=== PATIENT | female | born 2000 | race Caucasian/White ===

== ENCOUNTER 2019-08-09 11:42 | Emergency (ER) | payer OTHER ==
--- NOTE | 2019-08-09 12:35 | ED ---
Head Injury - HPI Summary HPI Summary: Patient is a 19 y/o F presenting to the ED for a chief complaint of headache after a head injury. Patient was sent to [facility]. Patient was seen at [facility] on 08/06/19 and had a follow up with [facility] this morning. Patient describes that she was playing [employer] on 08/04/19 when she tripped and hit her head. Patient denies LOC at that time. Patient admits neck pain, nausea, dizziness, whiplash, blurred vision, and a headache that began on 08/05/19. Patient states the blurred vision worsens when looking at screens or reading. Patient denies weakness in the bilateral UE or LE or vomiting. Patient denies exertion since the head injury. Patient took Tylenol Q4H with some relief. Patient denies any PMHx, but admits a PSHx of wisdom tooth surgery. Patient denies tobacco, alcohol, or drug use. 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 Allergies noted. Medications reviewed. - History Of Current Complaint Chief Complaint: EDHeadInjury Stated Complaint: POSSIBLE CONCUSSIN Time Seen by Provider: 08/09/19 12:14 Hx Obtained From: Patient Mechanism Of Injury: Fall From A Standing Position - Playing [employer] Onset/Duration: Traumatic, Still Present Onset of Pain: Days Severity Currently: Severe Severity Initially: Severe Pain Intensity: 7 Pain Scale Used: 0-10 Numeric Location of Head Injury: Diffuse Alleviating Factor(s): OTC Medications` - Tylenol with some relief Associated Signs And Symptoms: Neck Pain, Nausea, Headache, Visual Changes - Blurred vision worse with looking at screens or reading, Other: - Positive dizziness and whiplash - Allergies/Home Medications Allergies/Adverse Reactions: Allergies Allergy/AdvReac Type Severity Reaction Status Date / Time No Known Allergies Allergy Verified 08/09/19 12:17 Home Medications: Home Medications NK [No Home Medications Reported] 08/09/19 [History Confirmed 08/09/19] PMH/Surg Hx/FS Hx/Imm Hx Previously Healthy: Yes Endocrine/Hematology History: Denies: Hx Diabetes Cardiovascular History: Denies: Hx Hypercholesterolemia, Hx Hypertension Respiratory History: Reports: Other Respiratory Problems/Disorders - Hx allergies Sensory History: Denies: Hx Legally Blind, Hx Deafness Opthamlomology History: Denies: Hx Legally Blind EENT History: Denies: Hx Deafness - Surgical History Surgical History: None Surgery Procedure, Year, and Place: None Infectious Disease History: No Infectious Disease History: Denies: Traveled Outside the [place] in Last 30 Days - Family History Known Family History: Negative: Hypertension, Diabetes - Social History Occupation: Student Lives: Alone Alcohol Use: Rare Hx Substance Use: No Substance Use Type: Reports: None Hx Tobacco Use: No Smoking Status (MU): Never Smoked Tobacco Review of Systems Positive: Blurred Vision - Worse with looking at screens or reading Positive: Nausea Positive: Myalgia - Neck pain and whiplash Neurological: Other - Positive dizziness Positive: Headache. Negative: Weakness - Bilateral UE or LE, Syncope All Other Systems Reviewed And Are Negative: Yes Physical Exam - Summary Physical Exam Summary: Constitutional: Well-developed, Well-nourished, Alert. (-) Distressed Skin: Warm, Dry HENT: Normocephalic; Atraumatic Eyes: Conjunctiva normal Neck: Musculoskeletal ROM normal neck. (-) JVD, (-) Stridor, (-) Tracheal deviation Cardio: Rhythm regular, rate normal, Heart sounds normal; Intact distal pulses. Radial pulses are 2+ and symmetric. (-) Murmur Pulmonary/Chest wall: Effort normal. (-) Respiratory distress, (-) Wheezes, (-) Rales Abd: Soft. (-) Tenderness, (-) Distension, (-) Guarding, (-) Rebound Musculoskeletal: (-) Edema Lymph: (-) Cervical adenopathy Neuro: Alert, Oriented x3, Strength normal, Cranial nerves II-XII are grossly intact. (-) Dysmetria, (-) Nystagmus, (-) Ataxia by finger to nose testing, (-) Sensory deficit. Psych: Mood and affect Normal Triage Information Reviewed: Yes Vital Signs On Initial Exam: Initial Vitals Temp Pulse Resp BP Pulse Ox 98.1 F 66 18 116/65 100 08/09/19 11:43 08/09/19 11:43 08/09/19 11:43 08/09/19 11:43 08/09/19 11:43 Vital Signs Reviewed: Yes Procedures - Sedation Patient Received Moderate/Deep Sedation with Procedure: No Diagnostics - Vital Signs Vital Signs Temp Pulse Resp BP Pulse Ox 08/09/19 11:43 98.1 F 66 18 116/65 100 - Laboratory Lab Statement: Any lab studies that have been ordered have been reviewed, and results considered in the medical decision making process. Head Injury Course/Dx Course Of Treatment: Patient is here with symptoms consistent with a concussion. Patient felt headache, dizziness, blurred vision 2 days after her injury. Patient did not use CT head per clinical decision-making rules. Patient was educated on concussion management and following up with [facility] to make sure she gets better. - Diagnoses Provider Diagnoses: Concussion Discharge ED - Sign-Out/Discharge Documenting (check all that apply): Patient Departure - Discharge - Discharge Plan Condition: Stable Disposition: HOME Forms: *School Release Referrals: [facility] - Mark CABRERA [Primary Care Provider] - Additional Instructions: Follow up with [facility] and a neurologist within 1-3 days. Return to the Emergency Department for any new or worsening symptoms. Take ibuprofen 600 mg every 6 hours. Do not read, exert yourself, or do schoolwork if these worsen your symptoms. - Billing Disposition and Condition Condition: STABLE Disposition: Home - Attestation Statements Document Initiated by Quangibe: Yes Documenting Scribe: Janna Montana Provider For Whom Da is Documenting (Include Credential): Parish Mcfarlane MD Scribe Attestation: Janna Barajas scribed for Parish Mcfarlane MD on 08/09/19 at 2043. Scribe Documentation Reviewed: Yes Provider Attestation: The documentation as recorded by the Janna mai accurately reflects the service I personally performed and the decisions made by me, Parish Mcfarlane MD Status of Scribe Document: Viewed
[2019-08-09 12:46] VITALS: BP 123/78
== END 2019-08-09 12:41 | disposition home or self-care (01) ==
LOC: ED 11:42
DX: S06.0X9A Concussion with loss of consciousness of unspecified duration, initial encounter (principal); W18.49XA Other slipping, tripping and stumbling without falling, initial encounter; Y93.74 Activity, frisbee; Y92.9 Unspecified place or not applicable
CPT/HCPCS: 99282